=== PATIENT | male | born 1975 | race Caucasian/White ===

== ENCOUNTER 2021-02-23 08:48 | Emergency (ER) | payer MEDICAID, OTHER ==
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
--- NOTE | 2021-02-23 13:07 | CR ---
Right ankle: 3 views of the right ankle were obtained. Comparison: No prior ankle study is available. Soft tissue swelling is identified. Ankle mortise is symmetric. No definite fracture, dislocation or other bony abnormality is appreciated. Impression: 1. Soft tissue swelling. 2. No definite acute bony abnormality is appreciated. Diagnostic code #2
--- NOTE | 2021-02-23 13:07 | CR ---
Right foot: 4 views of the right foot were obtained. Comparison: No prior right foot study is available. Joint spaces are preserved. Small os navicularis is noted. No acute fracture, dislocation or other bony abnormality is appreciated. Impression: 1. No acute bony abnormality is identified on right foot exam. Diagnostic code #1
== END 2021-02-23 14:00 | disposition home or self-care (01) ==
LOC: JD.ED 08:48
DX: S99.911A Unspecified injury of right ankle, initial encounter (principal); S99.921A Unspecified injury of right foot, initial encounter; I10 Essential (primary) hypertension; I25.2 Old myocardial infarction; E78.5 Hyperlipidemia, unspecified; E66.9 Obesity, unspecified; Z72.0 Tobacco use; Z88.6 Allergy status to analgesic agent; Z88.5 Allergy status to narcotic agent; Z79.82 Long term (current) use of aspirin; Z79.899 Other long term (current) drug therapy; V98.8XXA Other specified transport accidents, initial encounter; Y92.89 Other specified places as the place of occurrence of the external cause; Y99.0 Civilian activity done for income or pay
CPT/HCPCS: 73610-26-RT; 73610-RT; 73630-26-RT; 73630-RT; 99282; 99283-25